=== PATIENT | female | born 2000 | race Caucasian/White ===

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

== ENCOUNTER 2023-10-09 03:24 | Inpatient (IN) | payer BC, MEDICAID ==
[~2023-10-09] VITALS: Ht 167.6 cm; Wt 102.7 kg
[2023-10-09] VITALS (38 sets, daily range): BP systolic 91–132; BP diastolic 50–76; PULSE 56–107; TEMP 97.5–98.6
--- NOTE | 2023-10-09 03:40 | NUR ---
Ambulatory to unit for labor assessment, accompanied by mother. Oriented to room,monitor, plan of care. Pt reports "my first contraction was at midnight. They are getting closer and stronger." Pt denies LOF or vaginal bleeding.
--- NOTE | 2023-10-09 03:55 | NUR ---
SVE as noted, amniotrace with no color change, no fluid illicited with exam. Mother supportive at bedside.
[2023-10-09] MEDS ORDERED: LR 1,000 ML IV PRN (04:00)
[2023-10-09] MEDS ORDERED: Penicillin G Potassium 5,000,000 UNITS in NS 100 ML IV ONE (06:00)
[2023-10-09] MEDS ORDERED: LR 1,000 ML IV SCH (06:15)
[2023-10-09] MEDS ORDERED: LR & Oxytocin 500 ML IV SCH (06:15)
--- NOTE | 2023-10-09 06:20 | NUR ---
THIS RN AT BEDSIDE RECIEVING REPORT FROM MELISA, PATIENT CARES ASSUMED BY THIS NURSE AT THIS TIME
[2023-10-09 06:28] LABS: BASO % 0.2 % (0.0-2.0); EOS % 0.1 % (0.0-4.0); GRAN # 14.5 K/mm3 (1.4-6.5); GRAN % 86.1 % (42.2-75.2); HEMATOCRIT 39.1 % (35.0-45.0); HEMOGLOBIN 13.3 g/dl (12.0-15.0); LYMPH # 1.5 K/mm3 (1.2-3.4); MEAN CELL VOLUME 86 fl (80.0-95.0); MEAN CORPUSCULAR HEMOGLOBIN 29 pg (26-32); MEAN CORPUSCULAR HGB CONC 34 g/dl (33.0-37.0); MEAN PLATELET VOLUME 10.1 fl (7.4-10.4); MONO # 0.6 K/mm3 (0.1-0.6); MONO % 3.6 % (1.7-9.3); PLATELET COUNT 265 K/mm3 (130-400); RED BLOOD COUNT 4.57 M/mm3 (4.10-5.30); REDCELL DISTRIBUTION WIDTH-CV 13.9 % (11.5-14.5)
--- NOTE | 2023-10-09 06:32 | NUR ---
THIS RN AT BEDSIDE TO SIGN CONSENT FORMS, PATIENT VOMITING AT THIS TIME. EFM AND TOCO NOT TRACING WELL.
--- NOTE | 2023-10-09 06:52 | NUR ---
PATIENT REQUESTING TO USE BIRTHING BALL AND WALK AROUND, EFM AND TOCO NOT IN USE.
[2023-10-09] MEDS ORDERED: ROPivacaine PF 0.2% 200 ML IV ONE (07:44)
--- NOTE | 2023-10-09 08:03 | NUR ---
0748- PATIENT REPOSITIONED FOR EPDIURAL PLACEMENT, ARPAN IN PATIETNS ROOM TO EXPLAIN PROCEDURE. DIFFICULTY TRACING FHR DUE TO MATERNAL POSITION. 0758- TEST DOSE ADMINISTERED BY MARIO ANTONY AT THIS TIME. PATIENT TOLERATED WELL. 0803- PATIENT REPOSITIONED TO WEDGED RIGHT, EFM AND TOCO TRACING WELL. THIS RN REMAINS AT BEDSIDE TO ASSESS VITAL SIGNS.
[2023-10-09] MEDS ORDERED: diphenhydrAMINE 25 MG CAP PO PRN (09:00)
[2023-10-09] MEDS ORDERED: Naloxone 0.4 MG/ML VIAL IV PRN ×2 (09:00→13:30)
[2023-10-09] MEDS ORDERED: Ondansetron 4 MG/2 ML VIAL IV PRN (09:00)
[2023-10-09] MEDS ORDERED: ePHEDrine 50 MG/10 ML VIAL IV PRN (09:00)
[2023-10-09] MEDS ORDERED: diphenhydrAMINE 50 MG/ML 1 ML VIAL IV PRN (09:00)
--- NOTE | 2023-10-09 09:43 | NUR ---
AT BEDSIDE TO ASSESS PATIENT PROGRESS, SVE 6-/-1. PATIENT REPOSTIONED TO [facility]. PATIENT UPDATED ON PLAN OF CARE
[2023-10-09] MEDS ORDERED: Penicillin G Potassium 2,500,000 UNITS in NS 100 ML IV SCH (09:58)
--- NOTE | 2023-10-09 10:40 | NUR ---
THIS RN TO BEDSIDE TO REPOSITION PATIENT IN RESPONSE TO LATE DECELERATIONS, PATIENT REPOSITIONED TO SEMI-FOWLERS WITH A PEANUT BAL UNDER RIGHT LEG.
--- NOTE | 2023-10-09 10:51 | NUR ---
AT BEDSIDE TO ASSESS PATIENT PROGRESS. SVE /-1, AROM AT THIS TIME, MECONIUM FLUID.
--- NOTE | 2023-10-09 12:26 | NUR ---
AT BEDSIDE TO ASSESS PATIENT PROGRESS. SVE /+1. THIS RN PREPARES TO BEGIN PUSHIGN WITH PATIENT.
--- NOTE | 2023-10-09 13:05 | NUR ---
1257- AT BEDSIDE FOR DELIVERY. 1301- SPONTANEOUS DELIVERY OF . 1305- SPONTANEOUS DELIVERY OF PLACENTA AT THIS TIME, PITOCIN STARTED AT 333mU/HR ORDERED AND PER PROTOCOL.
[2023-10-09] MEDS ORDERED: Loratadine 10 MG TAB PO PRN (13:30)
[2023-10-09] MEDS ORDERED: Witch Hazel 50% Pads Bulk TUB TP PRN (13:30)
[2023-10-09] MEDS ORDERED: Phenylephrine/Mineral Oil/Petrolatum 57 GM TUBE RC PRN (13:30)
[2023-10-09] MEDS ORDERED: Ibuprofen 800 MG TAB PO SCH (13:30)
[2023-10-09] MEDS ORDERED: Mag/Al Hydrox/Simeth Susp 30 ML CUP PO PRN (13:30)
[2023-10-09] MEDS ORDERED: Acetaminophen 500 MG TAB PO SCH (13:30)
[2023-10-09] MEDS ORDERED: Measles/Mumps/Rubella Virus Vaccine Live w Diluent 0.5 ML VIAL SQ SCH (13:30)
[2023-10-09] MEDS ORDERED: Magnes Hydrox (MOM) 80 MG/ML 30 ML CUP PO PRN (13:30)
[2023-10-09] MEDS ORDERED: Sennosides/Docusate 8.6-50 MG TAB PO SCH (17:00)
--- NOTE | 2023-10-09 17:45 | NUR ---
1740- THIS RN AT BEDSIDE TO ATTMEPT TO GET PATIENT TO RESTROOM VIA DEDE STEADY. PATIENT SITS AND EPIDURAL IS DISCONTINUED. PATIENT DOES NOT REPORT DIZZINESS, PATIENT IS ASSISTED ONTO DEDE STEADY WITHOUT FEELINGS OF DIZZINESS. PATIENT IS ASSISTED TO RESTROOM WITH DEDE STEADY AND IS ABLE TO VOID, PERICARE PROVIDED AND PATIENT IS ASSISTED INTO A CLEAN GOWN. 1745- PATIENT IS TAKEN TO ROOM VIA DEDE STEADY. PATIENT AND SIGNIFICANT OTHER IS ORIENTED TO ROOM 208 AND ASSISTED INTO BED.
--- NOTE | 2023-10-09 20:15 | NUR ---
up to bathroom with steady gait. Voids large amount, performs own pericare, ice pack and tucks application. Back to bed without difficulty. Pt reports "my bottom really hurts" Discussed pain medication options/ plan. verbalized understanding
[2023-10-09] MEDS ORDERED: traZODone 50 MG TAB PO PRN (21:00)
[2023-10-10] VITALS: BP 126/60; PULSE 70; TEMP 97.9
[2023-10-10 08:00] VITALS: BP 116/59; PULSE 70; TEMP 98.4
[2023-10-10 13:00] VITALS: BP 104/50; PULSE 62; TEMP 98.6
[2023-10-10 15:20] VITALS: BP 110/62; PULSE 74; TEMP 97.7
[2023-10-10 19:30] VITALS: BP 125/67; PULSE 70; TEMP 97.9
[2023-10-11 07:00] VITALS: BP 118/64; PULSE 77; TEMP 98
--- NOTE | 2023-10-11 12:15 | NUR ---
DISCHARGE EDUCATION COMPLETED, HEALTH HISTORY GIVEN, AND FOLLOW UP APOINTMENTS DISCUSSED. QUESTIONS INVITED AND ANSWERED.
--- NOTE | 2023-10-11 12:15 | NUR ---
DISCHARGE EDUCATION COMPLETED, HEALTH HISTORY GIVEN, AND FOLLOW UP APPOINTMENTS DISCUSSED. QUESTIONS INVITED AND ANSWERED.
== END 2023-10-11 13:20 | disposition home or self-care (01) | DRG 807 ==
LOC: LDRO 03:24 → OB 06:09 → LDR 06:09 → OB 18:00
PROVIDERS: Student in an Organized Health Care Education/Training Program; ADMIT Obstetrics & Gynecology
PROC: 10E0XZZ Delivery of Products of Conception, External Approach (ICD-10-PCS; principal; 2023-10-09)
PROC: 0KQM0ZZ Repair Perineum Muscle, Open Approach (ICD-10-PCS; 2023-10-09)
PROC: 0W8NXZZ Division of Female Perineum, External Approach (ICD-10-PCS; 2023-10-09)
PROC: 10907ZC Drainage of Amniotic Fluid, Therapeutic from Products of Conception, Via Natural or Artificial Opening (ICD-10-PCS; 2023-10-09)
DX: O48.0 Post-term pregnancy (principal); Z37.0 Single live birth; Z3A.40 40 weeks gestation of pregnancy; O76 Abnormality in fetal heart rate and rhythm complicating labor and delivery; O99.824 Streptococcus B carrier state complicating childbirth; O99.02 Anemia complicating childbirth; F41.9 Anxiety disorder, unspecified; O99.344 Other mental disorders complicating childbirth; F90.9 Attention-deficit hyperactivity disorder, unspecified type; O99.284 Endocrine, nutritional and metabolic diseases complicating childbirth; E28.2 Polycystic ovarian syndrome; O77.0 Labor and delivery complicated by meconium in amniotic fluid; O70.1 Second degree perineal laceration during delivery
CPT/HCPCS: J2540; J2590; J2795; J7120